=== PATIENT | female | born 1970 | race Two or more races ===

== ENCOUNTER 2018-12-09 09:02 | Outpatient (CLI) | payer OTHER | END 2018-12-09 09:14 | disposition home or self-care (01) | LOC: MAMO-SONO 09:02 | DX: N60.21 Fibroadenosis of right breast (principal); N60.22 Fibroadenosis of left breast; N60.12 Diffuse cystic mastopathy of left breast; N60.11 Diffuse cystic mastopathy of right breast; D24.1 Benign neoplasm of right breast; D24.2 Benign neoplasm of left breast ==

== ENCOUNTER 2020-01-02 12:37 | Outpatient (CLI) | payer OTHER | END 2020-01-02 12:50 | disposition home or self-care (01) | LOC: MAMO-SONO 12:37 | PROVIDERS: ATTEND Surgery | DX: Z12.31 Encounter for screening mammogram for malignant neoplasm of breast (principal); N60.21 Fibroadenosis of right breast; N60.11 Diffuse cystic mastopathy of right breast; D24.1 Benign neoplasm of right breast; N60.22 Fibroadenosis of left breast; N60.12 Diffuse cystic mastopathy of left breast; D24.2 Benign neoplasm of left breast ==

== ENCOUNTER 2021-02-01 08:15 | Outpatient (CLI) | payer OTHER | END 2021-02-01 08:23 | disposition home or self-care (01) | LOC: MAMO-SONO 08:15 | PROVIDERS: ATTEND Surgery | DX: N60.21 Fibroadenosis of right breast (principal); N60.22 Fibroadenosis of left breast; N60.11 Diffuse cystic mastopathy of right breast; N60.12 Diffuse cystic mastopathy of left breast; D24.1 Benign neoplasm of right breast; D24.2 Benign neoplasm of left breast; Z12.31 Encounter for screening mammogram for malignant neoplasm of breast ==

== ENCOUNTER 2022-02-15 09:35 | Outpatient (CLI) | payer OTHER | END 2022-02-15 09:44 | disposition home or self-care (01) | LOC: MAMO-SONO 09:35 | PROVIDERS: ATTEND Surgery | DX: N60.21 Fibroadenosis of right breast (principal); N60.11 Diffuse cystic mastopathy of right breast; N60.22 Fibroadenosis of left breast; N60.12 Diffuse cystic mastopathy of left breast; D24.1 Benign neoplasm of right breast; D24.2 Benign neoplasm of left breast; R10.2 Pelvic and perineal pain; Z12.31 Encounter for screening mammogram for malignant neoplasm of breast ==

== ENCOUNTER 2022-11-07 13:32 | Outpatient (CLI) | payer OTHER | END 2022-11-07 13:34 | disposition home or self-care (01) | LOC: RAD 13:32 | DX: M99.01 Segmental and somatic dysfunction of cervical region (principal); M99.02 Segmental and somatic dysfunction of thoracic region; M99.03 Segmental and somatic dysfunction of lumbar region ==

== ENCOUNTER 2023-03-02 10:47 | Outpatient (CLI) | payer OTHER | END 2023-03-02 11:08 | disposition home or self-care (01) | LOC: MAMO-SONO 10:47 | PROVIDERS: ATTEND Surgery | DX: D24.1 Benign neoplasm of right breast (principal); N60.11 Diffuse cystic mastopathy of right breast; N61.21 Granulomatous mastitis, right breast ==

== ENCOUNTER 2024-06-25 13:31 | Outpatient (CLI) | payer OTHER | END 2024-06-25 13:49 | disposition home or self-care (01) | LOC: MAMO-SONO 13:31 | DX: Z12.31 Encounter for screening mammogram for malignant neoplasm of breast (principal) ==